=== PATIENT | male | born 1975 | race Caucasian/White ===

== ENCOUNTER 2024-07-16 23:20 | Emergency (ER) | payer BC, MEDICAID ==
[~2024-07-16] VITALS: Ht 170.2 cm; Wt 95.3 kg
[2024-07-16 23:43] VITALS: BP_SYST 164; PULSE 98; RESP 16; TEMP 98.3; O2SAT 100
== END 2024-07-17 00:55 | disposition left against medical advice (07) ==
LOC: SED 23:20
DX: M25.511 Pain in right shoulder (principal); M79.644 Pain in right finger(s); Z53.21 Procedure and treatment not carried out due to patient leaving prior to being seen by health care provider